=== PATIENT | female | born 1975 | race Two or more races ===

== ENCOUNTER 2022-12-10 10:35 | Emergency (ER) | payer MEDICAID ==
[~2022-12-10] VITALS: Ht 165.1 cm; Wt 74.0 kg
[2022-12-10 10:45] VITALS: BP 117/72
[2022-12-10] MEDS ORDERED: IBUPROFEN 800 MG TAB PO ONE (11:45)
[2022-12-10] MEDS ORDERED: IBUP800T27 PO (12:06)
[2022-12-10] MEDS ORDERED: CEPH-510 PO (12:06)
== END 2022-12-10 12:10 | disposition home or self-care (01) ==
LOC: ER 10:35
DX: S90.31XA Contusion of right foot, initial encounter (principal); W20.8XXA Other cause of strike by thrown, projected or falling object, initial encounter; Y93.89 Activity, other specified; Y92.89 Other specified places as the place of occurrence of the external cause; Y99.8 Other external cause status
CPT/HCPCS: 73630